=== PATIENT | male | born 1945 | race Caucasian/White ===

== ENCOUNTER 2022-07-12 18:51 | Emergency (ER) | payer OTHER ==
[~2022-07-12] VITALS: Ht 170.2 cm; Wt 72.6 kg
[~2022-07-12 18:51] MED LIST: ATACAND HCT 31 UDTAB; GLUCOTROL10 MG; METFORMIN HCL500 MG; MUCINEX600 MG; ROBITUSSIN15 MG
[2022-07-12] MEDS ORDERED: CRESTOR5 MG PO (19:57)
[2022-07-12] MEDS ORDERED: COZAAR100 MG PO (19:57)
[2022-07-12] MEDS ORDERED: TAMS0.4C PO (19:58)
[2022-07-12] MEDS ORDERED: AMLODIPINE-OLM1 EAC3 PO (19:58)
== END 2022-07-13 00:30 | disposition home or self-care (01) ==
LOC: ER 18:51
DX: M54.59 Other low back pain (principal); I10 Essential (primary) hypertension; E11.9 Type 2 diabetes mellitus without complications; N28.1 Cyst of kidney, acquired